=== PATIENT | female | born 1940 | race Caucasian/White ===

== ENCOUNTER → 2016-12-29 | Outpatient (CLI) | payer OTHER | LOC: FIMAGING 10:35 | DX: Z12.31 Encounter for screening mammogram for malignant neoplasm of breast (principal); Z80.3 Family history of malignant neoplasm of breast | CPT/HCPCS: G0202 ==

== ENCOUNTER 2017-09-10 23:25 | Emergency (ER) | payer OTHER ==
[2017-09-10 23:42] VITALS: TEMP 97.7
[2017-09-10] MEDS ORDERED: NS 1,000 ML IV ONE (23:46)
--- NOTE | 2017-09-10 23:46 | EDPHY ---
H & P Stated Complaint: says sick x 2 weeks, last pm pt says felt dizzy, worse today and n/v HPI/ROS: HPI CHIEF COMPLAINT: Dizziness, nausea, vomiting HISTORY OF PRESENT ILLNESS: This patient very pleasant 76-year-old female, significant past medical history atrial fibrillation paroxymal, only takes aspirin for this. She is not chronic AFib, history of osteoporosis and thyroid disease she presents emergency room with dizziness. She describes as room sensation spinning. With associated nausea. Worse when she goes to stand up. Worse with head movement. She denies being pulled 1 side or the other. She denies chest pain or shortness of breath. She does complain of a frontal throbbing headache. Additionally she tells me that she has been sick for approximately 2 weeks with an upper respiratory tract infection sore throat and some ear pain. She was seen by her primary care doctor and diagnosed with a viral illness. Ruled out bacterial strep. She reports that 9:00 p.m. yesterday she developed this dizziness while washing dishes. She was able to go to sleep last night when she woke up this morning early she felt like she was having worsening dizziness. She describes room sensation spinning. She tried to tough it out all day she decided come to the emergency room around 1145 at night as her dizziness persisted today and her became concerned that she should go to sleep. She denies any focal weakness. Denies numbness or tingling. Additionally this was not sudden onset. She had no double vision. She does not of a posterior headache or neck pain. Past Medical History: Osteoporosis, thyroid disease, atrial fib Past Surgical History: Denies recent surgery. History of foot surgery. Social History: Denies daily use drugs alcohol tobacco products. Family History: Noncontributory ROS REVIEW OF SYSTEMS: A comprehensive 10 point review of systems is otherwise negative aside from elements mentioned in the history of present illness. Exam Constitutional appears well nontoxic triage nursing summary reviewed, vital signs reviewed, awake/alert. Eyes normal conjunctivae and sclera, EOMI, PERRLA. HENT mom mild fluid behind both TMs but no disc bulge, posterior pharynx normal. normal inspection, atraumatic, moist mucus membranes, no epistaxis, neck supple/ no meningismus, no raccoon eyes. Respiratory clear to auscultation bilaterally, normal breath sounds, no respiratory distress, no wheezing. Cardiovascular no irregular rhythm. rate normal, regular rhythm, no murmur, no edema, distal pulses normal. Gastrointestinal soft, non-tender, no rebound, no guarding, normal bowel sounds, no distension, no pulsatile mass. Genitourinary no CVA tenderness. Musculoskeletal no midline vertebral tenderness, full range of motion, no calf swelling, no tenderness of extremities, no meningismus, good pulses, neurovascularly intact. Skin pink, warm, & dry, no rash, skin atraumatic. Neurologic awake, alert and oriented x 3, AAOx3, moves all 4 extremities equally, motor intact, sensory intact, CN II-XII intact, normal cerebellar, normal vision, normal speech. Psychiatric normal mood/affect. Heme/Lymph/Immune no lymphadenopathy. Differential Diagnosis: Includes but is not limited to in a particular order benign positional vertigo, Meniere's disease, posterior circulation stroke which I doubt given history and review of systems and clinical picture. Acute coronary syndrome which I doubt. Electrolyte disturbance, dehydration, upper respiratory tract infection. Medical Decision Making: Plan for this patient she will have a workup for dizziness which includes full cardiac rehabilitation specialist EKG and troponin, check basic electrolytes, CT scan head without contrast, given her risk factor AFib, IV fluid bolus 1 L normal saline, meclizine p. o. 25 mg, Valium 2.5 mg IV. Monitor for worsening of condition. Monitor for improvement of her dizziness. I believe given the history, review of systems and physical exam this is benign positional vertigo. Re-evaluation: EKG: TIME OF EK. This is sinus rhythm rate of 63. Q-waves noted V1 V2. No significant ST depression ST elevation or T-wave abnormalities. No prolonged intervals. When I compare this to her old EKG dated 10/17/2012 very similar morphology. Q-waves noted on old EKG as well. CT scan of the head without contrast reviewed. Negative for acute injury specifically no bleed or infarct there is sphenoid sinusitis appreciated. No air-fluid levels. Additionally she has atrophy compared her old scan. Significant increase in the atrophy of the brain tissue over the past 5 years. 0216: This patient is resting comfortably. She states her dizziness is much improved. She has been sleeping. She received IV Valium 2.5 mg, and meclizine. Her CT scan does not show a bleed or stroke. However I did discuss her CT scan result findings about atrophy. I do recommend she follows up with Neurology about this. Additionally I will send her to ENT for vertigo. Additionally she understands she develops nausea, vomiting, dizziness worsening of condition she should return to the emergency room. Prescription given for meclizine. She would like to go home. Source: Patient - Medical/Surgical History Hx Asthma: No Hx Chronic Respiratory Disease: No Hx Diabetes: No Hx Cardiac Disease: Yes Hx Renal Disease: No Hx Cirrhosis: No Hx Alcoholism: No Hx HIV/AIDS: No Hx Splenectomy or Spleen Trauma: No Other PMH: afib, hypothyroid, osteoporosis, bilat foot surg - Social History Smoking Status: Former smoker Constitutional: Initial Vital Signs Temperature (C) 36.5 C 09/10/17 23:36 Heart Rate 66 09/10/17 23:36 Respiratory Rate 16 09/10/17 23:36 Blood Pressure 151/81 H 09/10/17 23:36 O2 Sat (%) 95 09/10/17 23:36 O2 Delivery Mode Room Air Allergies/Adverse Reactions: PEANUTS Allergy (Intermediate, Uncoded 09/10/17 23:43) iv contrast Allergy (Uncoded 09/10/17 23:43) Home Medications: Medication Instructions Recorded Ascorbic Acid [Vitamin C 500 mg 500 mg PO DAILY 12/19/12 (OTC)] Aspirin [Aspirin 81mg (OTC)] 81 mg PO DAILY 12/19/12 Calcium Carb W/Vit D [Calcium Carb 500 mg PO DAILY 12/19/12 W/Vit D 500/200 (OTC)] Cholecalciferol Vit D3 [Vitamin D3 2,000 units PO DAILY 12/19/12 2000 units (OTC)] Herbals/Supplements -Info Only 1 each PO AD 12/19/12 Levothyroxine [Synthroid 75 mcg 75 mcg PO DAILY06 12/19/12 (RX)] Magnesium Oxide [Magnesium Oxide 400 mg PO DAILY 12/19/12 400 mg (OTC)] Multivitamins [Tab-A-Mariano] 1 each PO DAILY 12/19/12 [place]-3 Fatty Acids [Fish Oil 1000 2,000 mg PO DAILY 12/19/12 mg (OTC)] Pharmacy Completed 12/19/12 12/19/12 Diltiazem 09/10/17 Forteo 09/10/17 Meclizine HCl [Meclizine HCl 25 mg 25 mg PO BID #10 tab 09/11/17 (RX,OTC)] Medical Decision Making - Data Points Laboratory Results: Laboratory Results 09/10/17 23:57 09/10/17 23:57 09/11/17 09/10/17 09/10/17 00:50 23:57 23:57 WBC RBC Hgb Hct MCV MCH MCHC RDW Plt Count MPV Neut % (Auto) Lymph % (Auto) [place] % (Auto) Eos % (Auto) Baso % (Auto) Nucleat RBC Rel Count Absolute Neuts (auto) Absolute Lymphs (auto) Absolute Monos (auto) Absolute Eos (auto) Absolute Basos (auto) Absolute Nucleated RBC Immature Gran % Immature Gran # PT 12.9 SEC SEC (12.0-15.0) INR 0.98 (0.83-1.16) APTT 27.2 SEC SEC (23.0-38.0) Sodium 136 mEq/L mEq/L (134-144) Potassium 4.0 mEq/L mEq/L (3.5-5.2) Chloride 98 mEq/L mEq/L (97-110) Carbon Dioxide 26 mEq/l mEq/l (22-31) Anion Gap 12 mEq/L mEq/L (8-16) BUN 17 mg/dL mg/dL (7-23) Creatinine 0.6 mg/dL mg/dL (0.6-1.0) Estimated GFR > 60 Glucose 138 mg/dL H mg/dL (70-100) Calcium 9.8 mg/dL mg/dL (8.5-10.4) Magnesium 1.9 mg/dL mg/dL (1.6-2.3) Total Bilirubin 0.6 mg/dL mg/dL (0.1-1.4) Conjugated Bilirubin 0.1 mg/dL mg/dL (0.0-0.5) Unconjugated Bilirubin 0.5 mg/dL mg/dL (0.0-1.1) AST 26 IU/L IU/L (14-46) ALT 38 IU/L IU/L (9-52) Alkaline Phosphatase 134 IU/L H IU/L (38-126) Creatine Kinase 58 IU/L IU/L (0-156) CK-MB (CK-2) Fraction 1.37 ng/mL ng/mL (0.00-3.19) Troponin I < 0.012 ng/mL ng/mL (0.000-0.034) NT-Pro-B Natriuret Pep 136 pg/mL pg/mL (0-450) Total Protein 7.4 g/dL g/dL (6.3-8.2) Albumin 4.0 g/dL g/dL (3.5-5.0) Lipase 74 IU/L IU/L (23-300) Urine Color YELLOW Urine Appearance HAZY Urine pH 5.0 (5.0-7.5) Ur Specific [place] 1.019 (1.002-1.030) Urine Protein NEGATIVE (NEGATIVE) Urine Ketones TRACE H (NEGATIVE) Urine Blood NEGATIVE (NEGATIVE) Urine Nitrate NEGATIVE (NEGATIVE) Urine Bilirubin NEGATIVE (NEGATIVE) Urine Urobilinogen NEGATIVE EU EU (0.2-1.0) Ur Leukocyte Esterase NEGATIVE (NEGATIVE) Urine Glucose NEGATIVE (NEGATIVE) 09/10/17 23:57 WBC 8.23 10^3/uL 10^3/uL (3.80-9.50) RBC 4.37 10^6/uL 10^6/uL (4.18-5.33) Hgb 14.6 g/dL g/dL (12.6-16.3) Hct 41.2 % % (38.0-47.0) MCV 94.3 fL fL (81.5-99.8) MCH 33.4 pg pg (27.9-34.1) MCHC 35.4 g/dL g/dL (32.4-36.7) RDW 11.8 % % (11.5-15.2) Plt Count 330 10^3/uL 10^3/uL (150-400) MPV 8.9 fL fL (8.7-11.7) Neut % (Auto) 78.9 % H % (39.3-74.2) Lymph % (Auto) 14.2 % L % (15.0-45.0) [place] % (Auto) 6.0 % % (4.5-13.0) Eos % (Auto) 0.1 % L % (0.6-7.6) Baso % (Auto) 0.6 % % (0.3-1.7) Nucleat RBC Rel Count 0.0 % % (0.0-0.2) Absolute Neuts (auto) 6.49 10^3/uL 10^3/uL (1.70-6.50) Absolute Lymphs (auto) 1.17 10^3/uL 10^3/uL (1.00-3.00) Absolute Monos (auto) 0.49 10^3/uL 10^3/uL (0.30-0.80) Absolute Eos (auto) 0.01 10^3/uL L 10^3/uL (0.03-0.40) Absolute Basos (auto) 0.05 10^3/uL 10^3/uL (0.02-0.10) Absolute Nucleated RBC 0.00 10^3/uL 10^3/uL (0-0.01) Immature Gran % 0.2 % % (0.0-1.1) Immature Gran # 0.02 10^3/uL 10^3/uL (0.00-0.10) PT INR APTT Sodium Potassium Chloride Carbon Dioxide Anion Gap BUN Creatinine Estimated GFR Glucose Calcium Magnesium Total Bilirubin Conjugated Bilirubin Unconjugated Bilirubin AST ALT Alkaline Phosphatase Creatine Kinase CK-MB (CK-2) Fraction Troponin I NT-Pro-B Natriuret Pep Total Protein Albumin Lipase Urine Color Urine Appearance Urine pH Ur Specific [place] Urine Protein Urine Ketones Urine Blood Urine Nitrate Urine Bilirubin Urine Urobilinogen Ur Leukocyte Esterase Urine Glucose Medications Given: Discontinued Medications Diazepam (Valium Injection) 2.5 mg IVP EDNOW ONE Stop: 09/10/17 23:54 Last Admin: 09/11/17 00:02 Dose: 2.5 mg Sodium Chloride (Ns) 1,000 mls @ 0 mls/hr IV EDNOW ONE; Wide Open PRN Reason: Protocol Stop: 09/10/17 23:47 Last Admin: 09/11/17 00:03 Dose: 1,000 mls Meclizine HCl (Meclizine Hcl) 25 mg PO EDNOW ONE Stop: 09/10/17 23:54 Last Admin: 09/11/17 00:01 Dose: 25 mg Departure - Departure Disposition: Home, Routine, Self-Care Clinical Impression: Dizziness, Vertigo Condition: Good Instructions: Vertigo (ED), Dizziness (ED) Additional Instructions: 1. Stay well-hydrated. 2. If you have worsening dizziness vomiting please return to the emergency room. 3. Follow up with Neurology for your CT scan of your brain. 4. Follow up with ENT for dizziness. 5. Return if worse. Referrals: Mara Crews MD [Primary Care Provider] - As per Instructions Jeremías Daly DO [Medical Doctor] - As per Instructions Soto Wheeler MD [Medical Doctor] - As per Instructions Prescriptions: Meclizine HCl [Meclizine HCl 25 mg (RX,OTC)] 25 mg PO BID #10 tab
[2017-09-10] MEDS ORDERED: MECLIZINE HCL 25 MG TAB PO ONE (23:53)
[2017-09-10] MEDS ORDERED: DIAZEPAM 10 MG/2 ML SYR IVP ONE (23:53)
--- NOTE | 2017-09-11 00:02 | CPEKG ---
Heart Rate: 63 RR Interval: 952 P-R Interval: 156 QRSD Interval: 94 QT Interval: 412 QTC Interval: 422 P [place]: 62 QRS [place]: -22 T Wave [place]: 16 EKG Severity - ABNORMAL ECG - EKG Impression: SINUS RHYTHM EKG Impression: BORDERLINE LEFT AXIS DEVIATION EKG Impression: CONSIDER ANTEROSEPTAL INFARCT Electronically Signed By: Merritt Gan 11-Sep-2017 07:06:24
[2017-09-11 00:05] LABS: % IMMATURE GRANULYOCYTES 0.2 % (0.0-1.1); ABSOLUTE IMMATURE GRANULOCYTES 0.02 10^3/uL (0.00-0.10); ADD DIFF? NO; ADD MORPH? NO; ADD SCAN? NO; ATYPICAL LYMPHOCYTE FLAG 20 (0-99); FRAGMENT RBC FLAG 0 (0-99); HEMATOCRIT 41.2 % (38.0-47.0); HEMOGLOBIN 14.6 g/dL (12.6-16.3); LEFT SHIFT FLG 0 (0-99); LIPEMIA HEMOLYSIS FLAG 90 (0-99); MEAN CELL HEMOGLOBIN 33.4 pg (27.9-34.1); MEAN CELL HEMOGLOBIN CONCENTR. 35.4 g/dL (32.4-36.7); MEAN CELL VOLUME 94.3 fL (81.5-99.8); MEAN PLATELET VOLUME 8.9 fL (8.7-11.7); PLATELET CLUMPS FLAG 0 (0-99); PLATELET COUNT 330 10^3/uL (150-400); RED BLOOD CELL COUNT 4.37 10^6/uL (4.18-5.33); RED CELL DISTRIBUTION WIDTH 11.8 % (11.5-15.2)
[2017-09-11 00:21] LABS: INR 0.98 (0.83-1.16); PROTIME(PATIENT) 12.9 SEC (12.0-15.0)
[2017-09-11 00:22] LABS: APTT 27.2 SEC (23.0-38.0)
[2017-09-11 00:31] LABS: ALANINE AMINOTRANSFERASE 38 IU/L (9-52); ALKALINE PHOSPHATASE 134 IU/L (38-126); ANION GAP 12 mEq/L (8-16); ASPARTATE AMINOTRANSFERASE 26 IU/L (14-46); BILIRUBIN,TOTAL 0.6 mg/dL (0.1-1.4); BILIRUBIN-CONJUGATED 0.1 mg/dL (0.0-0.5); BILIRUBIN-UNCONJUGATED 0.5 mg/dL (0.0-1.1); CALCIUM 9.8 mg/dL (8.5-10.4); CARBON DIOXIDE 26 mEq/l (22-31); CHLORIDE 98 mEq/L (97-110); CREATININE 0.6 mg/dL (0.6-1.0); GLOMERULAR FILTRATION RATE > 60; GLUCOSE 138 mg/dL (70-100); MAGNESIUM 1.9 mg/dL (1.6-2.3); SODIUM 136 mEq/L (134-144); TOTAL PROTEIN 7.4 g/dL (6.3-8.2)
[2017-09-11 00:50] LABS: CREATINE KINASE-MB FRACTION 1.37 ng/mL (0.00-3.19); TROPONIN I < 0.012 ng/mL (0.000-0.034)
[2017-09-11 01:03] LABS: COLOR YELLOW; LEUKOCYTE ESTERASE,URINE NEGATIVE (NEGATIVE); NITRITE,URINE NEGATIVE (NEGATIVE)
[2017-09-11 03:28] VITALS: BP 140/86; PULSE 69; RESP 18; O2SAT 96
== END 2017-09-11 03:25 | disposition home or self-care (01) ==
DX: R42 Dizziness and giddiness (principal); E86.9 Volume depletion, unspecified; Z79.82 Long term (current) use of aspirin; Z87.891 Personal history of nicotine dependence; Z91.010 Allergy to peanuts
CPT/HCPCS: 96374

== ENCOUNTER → 2018-02-02 | Outpatient (CLI) | payer OTHER | LOC: FIMAGING 10:15 | PROVIDERS: ATTEND Family Medicine | DX: Z12.31 Encounter for screening mammogram for malignant neoplasm of breast (principal); Z80.3 Family history of malignant neoplasm of breast ==

== ENCOUNTER 2018-08-04 10:52 | Emergency (ER) | payer OTHER ==
--- NOTE | 2018-08-04 11:00 | EDPHY ---
H & P Time Seen by Provider: 08/04/18 10:59 HPI/ROS: CHIEF COMPLAINT: Chin laceration HISTORY OF PRESENT ILLNESS: 77-year-old female here with chin laceration. She states she was playing tennis and tripped and fell on her chin just prior to arrival. She denies any neck pain, head injury, use of blood thinners, arm paresthesias, other associated injuries. ROS As detailed in HPI Smoking Status: Former smoker Physical Exam: General: Alert and oriented. Nontoxic appearing. No acute distress Head: No raccoon eyes [place] signs or hemotympanum. Her no signs of skull injury HEENT: Pupils PERRLA. No oral lesions. Cardiopulmonary: Regular rate and rhythm. No lower extremity edema Skin: [place] warm and dry. 1.5 cm chin laceration without foreign body Muscle skeletal: Moving all 4 extremities. Equal strength in upper extremities and lower extremities. Ambulatory. Constitutional: Initial Vital Signs Temperature (C) 36.6 C 08/04/18 10:58 Heart Rate 86 08/04/18 10:58 Respiratory Rate 16 08/04/18 10:58 Blood Pressure 169/89 H 08/04/18 10:58 O2 Sat (%) 95 08/04/18 10:58 O2 Delivery Mode Room Air Allergies/Adverse Reactions: PEANUTS Allergy (Intermediate, Uncoded 09/10/17 23:43) iv contrast Allergy (Uncoded 09/10/17 23:43) Home Medications: Medication Instructions Recorded Ascorbic Acid [Vitamin C 500 mg 500 mg PO DAILY 12/19/12 (OTC)] Aspirin [Aspirin 81mg (OTC)] 81 mg PO DAILY 12/19/12 Calcium Carb W/Vit D [Calcium Carb 500 mg PO DAILY 12/19/12 W/Vit D 500/200 (OTC)] Cholecalciferol Vit D3 [Vitamin D3 2,000 units PO DAILY 12/19/12 2000 units (OTC)] Levothyroxine [Synthroid 75 mcg 75 mcg PO DAILY06 12/19/12 (RX)] Pharmacy Completed 12/19/12 12/19/12 Diltiazem 09/10/17 Forteo 09/10/17 Medical Decision Making - Diagnostics Imaging Results: Imaging Impressions Cervical Spine CT 08/04/18 11:12 Impression: 1. No acute osseous abnormality seen about the cervical spine. 2. Stable mild anterior wedging of C7 segment compatible with remote compression fracture. Findings discussed with Jeremías Negron PAC at 1157 hour, 08/04/2018. Mandible X-Ray 08/04/18 11:12 Impression: Negative. Procedures: Procedure: Laceration repair. Verbal consent was obtained from the patient. The 1.5 laceration on the chin was anesthetized in the usual fashion. The wound was irrigated, draped and explored to its base with a gloved finger. There were no deep structures involved. No tendon injury was identified. The wound was repaired with # 3 simple suture interrupted 6-0 nylon. The wound repair was well approximated. The procedure was performed by myself. ED Course/Re-evaluation: Patient here with simple chin laceration. CT imaging of the cervical spine x- ray of the mandible showed no acute bony injury. She has normal dental alignment and no dental injury. She is alert and oriented with no signs of skull fracture or intracranial bleed. Departure - Departure Disposition: Home, Routine, Self-Care Clinical Impression: Laceration of chin Condition: Good Instructions: Laceration (ED) Additional Instructions: Follow-up in 5 days for suture removal Referrals: Mara Crews MD [Primary Care Provider] - As per Instructions
[2018-08-04 13:01] VITALS: BP 152/90
== END 2018-08-04 12:57 | disposition home or self-care (01) ==
PROC: 0HQ1XZZ Repair Face Skin, External Approach (ICD-10-PCS; principal; 2018-08-04)
DX: S01.81XA Laceration without foreign body of other part of head, initial encounter (principal); Y93.73 Activity, racquet and hand sports; W01.0XXA Fall on same level from slipping, tripping and stumbling without subsequent striking against object, initial encounter

== ENCOUNTER → 2019-02-28 | Outpatient (CLI) | payer OTHER | LOC: FIMAGING 09:07 | PROVIDERS: ATTEND Family Medicine | DX: Z12.31 Encounter for screening mammogram for malignant neoplasm of breast (principal); Z80.3 Family history of malignant neoplasm of breast ==